=== PATIENT | female | born 1935 | race Caucasian/White ===

== ENCOUNTER 2016-04-24 18:06 | Emergency (ER) | payer MEDICARE ==
[~2016-04-24] VITALS: Ht 170.2 cm; Wt 79.8 kg
[~2016-04-24 18:06] MED LIST: ALPR.5 PO; ASPI1TAB91 PO; B-COINJ IM/IV; BACT800T5 PO; COLA100C3 PO; ESTR0.62 VAGINAL; IRBE300T13 PO; LEVO50TA4 PO; METO50TA PO; OMEP40CA2 PO; SIMV20TA PO; ZOFR4TAB3 SL
[2016-04-24 18:17] VITALS: BP 145/82; PULSE 63; RESP 16; TEMP 98.4; O2SAT 98
[2016-04-24 19:10] LABS: AUTOMATED NEUTROPHIL # 4.1 TH/MM3 (1.8-7.7); BASOPHIL % 0.6 % (0.0-2.0); EOSINOPHIL # 0.3 TH/MM3 (0-0.4); EOSINOPHIL % 4.9 % (0.0-4.0); HEMO FLAGS DIFF FINAL; LYMPH % 19.7 % (9.0-44.0); LYMPHOCYTE # 1.2 TH/MM3 (1.0-4.8); MEAN CELL VOLUME 85.4 FL (80.0-100.0); MEAN CORPUSCULAR HEMOGLOBIN 29.9 PG (27.0-34.0); MONO % 5.9 % (0.0-8.0); NEUT % 68.9 % (16.0-70.0); PLATELET COUNT 214 TH/MM3 (150-450); RED BLOOD COUNT 4.22 MIL/MM3 (4.00-5.30); RED CELL DISTRIBUTION WIDTH 13.3 % (11.6-17.2); WHITE BLOOD COUNT 5.9 TH/MM3 (4.0-11.0)
[2016-04-24 19:15] VITALS: BP 140/65; PULSE 74; RESP 16; O2SAT 100
[2016-04-24 19:16] LABS: CHLORIDE 99 MEQ/L (98-107); POTASSIUM 4.1 MEQ/L (3.5-5.1); SODIUM (NA) 134 MEQ/L (136-145)
[2016-04-24 19:20] LABS: ANION GAP 9 MEQ/L (5-15); BICARBONATE 26.4 MEQ/L (21.0-32.0); BLOOD UREA NITROGEN 18 MG/DL (7-18)
[2016-04-24 19:22] LABS: APTT (PATIENT) 24.6 SEC (24.3-30.1); INTERNATIONAL NORMALIZED RATIO 0.9 RATIO; PROTHROMBIN TIME - PATIENT 10.3 SEC (9.8-11.6)
[2016-04-24 19:23] LABS: ALT (GPT) 21 U/L (10-53); AST (GOT) 22 U/L (15-37); GLOMERULAR FILTRATION RATE 48 ML/MIN (>89)
[2016-04-24 19:25] LABS: TOTAL BILIRUBIN ADULT 0.3 MG/DL (0.2-1.0)
[2016-04-24 19:26] LABS: ALKALINE PHOSPHATASE 101 U/L (45-117)
--- NOTE | 2016-04-24 19:31 | PD ---
HPI Chief Complaint: Musculoskeletal Complaint Time Seen by Provider: 18:24 Travel History International Travel<30 days: No Contact w/Intl Traveler<30days: No Traveled to known affect area: No History of Present Illness HPI This is an 80-year-old female who presents to the emergency department with right lower extremity swelling that started 5 days ago, constant, moderate severity, increasing making it more painful to walk. She denies any associated shortness of breath or chest pain. She's not been any long trips recently. She 's been using compression stockings but that has not been helping. She says that back in February she had a cholecystectomy and had a CT of her lungs at that time which demonstrated some inflammation. Her primary care doctor recently called her following a CT that she had done at [facility] and told her she needed to go to a specialist but she has no idea what it's about. PFSH Past Medical History Hx Anticoagulant Therapy: Yes (asa 81mg) Anemia: Yes (TAKES B12 MONTHLY) Arthritis: Yes Asthma: Yes Anxiety: Yes Cancer: Yes (LEFT BREAST, UTERUS) Cardiovascular Problems: Yes (htn on med) High Cholesterol: Yes Chemotherapy: Yes (IN ) Diabetes: Yes (BORDERLINE, NO MEDS) Patient Takes Glucophage: No GERD: Yes Genitourinary: Yes ("BENIGN NODULE INSIDE THE BLADDER THAT BLEEDS SOMETIMES") Hiatal Hernia: Yes Hypertension: Yes Inguinal Hernia: Yes (RIGHT, REPAIRED) Pneumonia: Yes Thyroid Disease: Yes (HYPOTHYROIDISM) ?: Not Menopausal: Yes : 4 Para: 3 Miscarriage: 1 Ovarian Cysts: Yes Tubal Ligation: Yes Past Surgical History Abdominal Surgery: Yes (RIGHT INGUINAL) Eye Surgery: Yes (BILATERAL LENS IMPLANTS) Hysterectomy: Yes Mastectomy: Yes (LEFT BREAST: 1971) Oral Surgery: Yes ("NODULE REMOVED OFF THE SIDE OF MY TONGUE") Tonsillectomy: Yes Social History Alcohol Use: Yes ("WINE ON OCCASION") Tobacco Use: No (QUIT 1969) Substance Use: No Allergies-Medications (Allergen,Severity, Reaction): Coded Allergies: Actonel (Verified Allergy, Severe, Swelling, 04/24/16) Boniva (Verified Allergy, Severe, Swelling, 04/24/16) Penicillin (Verified Allergy, Severe, Swelling, 04/24/16) Levaquin (Verified Allergy, Unknown, 04/24/16) Reported Meds & Prescriptions Reported Meds & Active Scripts Active Reported Vitamin B-Complex 100 Inj (B-Complex Vitamins Inj) 1 Inj Inj 1 Injection IM/IV MONTHLY Aspirin Adult Low Strength (Aspirin) 81 Mg Tabdr 81 Mg PO DAILY Colace (Docusate Sodium) 100 Mg Cap 100 Mg PO HS Metoprolol Tartrate 50 Mg Tab 50 Mg PO BID Omeprazole 40 Mg Cap 40 Mg PO BID Premarin Vaginal (Estrogens, Conjugated Vaginal) 0.625 Mg/Gm Cream 1 Gm VAGINAL TWICE A WEEK PRN Simvastatin 20 Mg Tab 20 Mg PO DAILY Levothyroxine (Levothyroxine Sodium) 50 Mcg Tab 50 Mcg PO DAILY Xanax (Alprazolam) 0.5 Mg Tab 0.5 Mg PO DAILY PRN Irbesartan-Hydrochlorothiazide 300-12.5 Mg Tab 1 Tab PO DAILY Review of Systems Except as stated in HPI: all other systems reviewed are Neg Physical Exam Narrative GENERAL:Well appearing, no acute distress SKIN: Warm and dry. HEAD: Atraumatic. Normocephalic. EYES: Pupils equal and round. No injection or drainage. ENT: Moist mucous membranes NECK: Trachea midline. CARDIOVASCULAR: Regular rate and rhythm. No murmur appreciated. RESPIRATORY: Clear to auscultation. Breath sounds equal bilaterally. GASTROINTESTINAL: Abdomen soft, non-tender, nondistended. MUSCULOSKELETAL: No obvious deformities. 2+ pitting edema on the right lower extremity greater than the left. Positive Homans sign. NEUROLOGICAL: Awake and alert. No obvious cranial nerve deficits. Moving all extremities. PSYCHIATRIC: Appropriate mood and affect; insight and judgment normal. Data Data Last Documented VS Vital Signs Date Time Temp Pulse Resp B/P Pulse Ox O2 Delivery O2 Flow Rate FiO2 04/24/16 19:15 74 16 140/65 100 Room Air 04/24/16 18:17 98.4 Orders Complete Blood Count With Diff (04/24/16 18:32) Comprehensive Metabolic Panel (04/24/16 18:32) B-Type Natriuretic Peptide (04/24/16 18:32) ^ Insert Iv (04/24/16 18:32) Us Leg Venous Doppler (04/24/16 ) Prothrombin Time / Inr (Pt) (04/24/16 18:49) Act Partial Throm Time (Ptt) (04/24/16 18:49) Labs Laboratory Tests Test 04/24/16 18:40 White Blood Count 5.9 TH/MM3 Red Blood Count 4.22 MIL/MM3 Hemoglobin 12.6 GM/DL Hematocrit 36.0 % Mean Corpuscular Volume 85.4 FL Mean Corpuscular Hemoglobin 29.9 PG Mean Corpuscular Hemoglobin 35.0 % Concent Red Cell Distribution Width 13.3 % Platelet Count 214 TH/MM3 Mean Platelet Volume 8.4 FL Neutrophils (%) (Auto) 68.9 % Lymphocytes (%) (Auto) 19.7 % Monocytes (%) (Auto) 5.9 % Eosinophils (%) (Auto) 4.9 % Basophils (%) (Auto) 0.6 % Neutrophils # (Auto) 4.1 TH/MM3 Lymphocytes # (Auto) 1.2 TH/MM3 Monocytes # (Auto) 0.3 TH/MM3 Eosinophils # (Auto) 0.3 TH/MM3 Basophils # (Auto) 0.0 TH/MM3 CBC Comment DIFF FINAL Differential Comment Prothrombin Time 10.3 SEC Prothromb Time International 0.9 RATIO Ratio Activated Partial 24.6 SEC Thromboplast Time Sodium Level 134 MEQ/L Potassium Level 4.1 MEQ/L Chloride Level 99 MEQ/L Carbon Dioxide Level 26.4 MEQ/L Anion Gap 9 MEQ/L Blood Urea Nitrogen 18 MG/DL Creatinine 1.10 MG/DL Estimat Glomerular Filtration 48 ML/MIN Rate Random Glucose 117 MG/DL Calcium Level 9.1 MG/DL Total Bilirubin 0.3 MG/DL Aspartate Amino Transf 22 U/L (AST/SGOT) Alanine Aminotransferase 21 U/L (ALT/SGPT) Alkaline Phosphatase 101 U/L Total Protein 7.3 GM/DL Albumin 4.0 GM/DL [facility] Medical Decision Making Medical Screen Exam Complete: Yes Emergency Medical Condition: Yes Interpretation(s) Afebrile, no tachycardia, mild hypertension No leukocytosis Mild hyponatremia Differential Diagnosis DVT, Willoughby cyst, lymphedema Narrative Course This is an 80-year-old female who presents to the emergency department with right lower extremity swelling. The patient has no risk factors for PE except recently had a CT done at [facility] which demonstrated a persistent area of consolidation on CT scan concerning for infection versus malignancy. She is seeing a specialist regarding this. Ultrasound was obtained as well as labs. Dr. Ortiz will follow-up on results and disposition the patient accordingly. Ivana Erickson MD Apr 24, 2016 19:31
--- NOTE | 2016-04-24 20:50 | RADHPO ---
EXAM DATE/TIME: 04/25/2016 00:26 [facility] COMPARISON: No previous studies available for comparison. INDICATIONS : Right leg pain. MEDICAL HISTORY : Hypothyroidism. Hypercholesterolemia. Gastroesophageal reflux disease. Hypertension. Asthma. Pneum onia. Hiatal hernia. Ovarian cysts. . Arthritis. Diabetes. Anxiety. Breast cancer. Uterine c ancer. Chemotherapy. Anticoagulant therapy, Aspirin. SURGICAL HISTORY : Hysterectomy. Mastectomy, left. Right inguinal hernia repair. Bilateral lens implants. Tongue nodul e removal. ENCOUNTER: Initial ACUITY: 1 day PAIN SCORE: 6/10 LOCATION: Right leg. TECHNIQUE: Venous ultrasound of the leg was performed from the inguinal ligament to the proximal calf. Real-elpidio e, color Doppler and spectral tracing, compression and augmentation techniques were used. FINDINGS: There is normal compressibility of the deep venous system from the inguinal region to the proximal ca lf. No echogenic clot is seen in the lumen of the common femoral, femoral, popliteal, and posterior tibial veins. There is a normal response of the venous system to proximal and distal augmentation an d respiration. CONCLUSION: No DVT. Kevin Pitts MD on April 24, 2016 at 20:48 Board Certified Radiologist. This report was verified electronically.
--- NOTE | 2016-04-24 20:57 | PD ---
Physical Exam Time Seen by Provider: 20:[address] Erickson left this patient with me to check the ultrasound/lab and make a disposition, likely discharge if ultrasound is negative for DVT. Data Data Last Documented VS Vital Signs Date Time Temp Pulse Resp B/P Pulse Ox O2 Delivery O2 Flow Rate FiO2 04/24/16 19:15 74 16 140/65 100 Room Air 04/24/16 18:17 98.4 Orders Complete Blood Count With Diff (04/24/16 18:32) Comprehensive Metabolic Panel (04/24/16 18:32) B-Type Natriuretic Peptide (04/24/16 18:32) ^ Insert Iv (04/24/16 18:32) Us Leg Venous Doppler (04/24/16 ) Prothrombin Time / Inr (Pt) (04/24/16 18:49) Act Partial Throm Time (Ptt) (04/24/16 18:49) Labs Laboratory Tests Test 04/24/16 18:40 White Blood Count 5.9 TH/MM3 Red Blood Count 4.22 MIL/MM3 Hemoglobin 12.6 GM/DL Hematocrit 36.0 % Mean Corpuscular Volume 85.4 FL Mean Corpuscular Hemoglobin 29.9 PG Mean Corpuscular Hemoglobin 35.0 % Concent Red Cell Distribution Width 13.3 % Platelet Count 214 TH/MM3 Mean Platelet Volume 8.4 FL Neutrophils (%) (Auto) 68.9 % Lymphocytes (%) (Auto) 19.7 % Monocytes (%) (Auto) 5.9 % Eosinophils (%) (Auto) 4.9 % Basophils (%) (Auto) 0.6 % Neutrophils # (Auto) 4.1 TH/MM3 Lymphocytes # (Auto) 1.2 TH/MM3 Monocytes # (Auto) 0.3 TH/MM3 Eosinophils # (Auto) 0.3 TH/MM3 Basophils # (Auto) 0.0 TH/MM3 CBC Comment DIFF FINAL Differential Comment Prothrombin Time 10.3 SEC Prothromb Time International 0.9 RATIO Ratio Activated Partial 24.6 SEC Thromboplast Time Sodium Level 134 MEQ/L Potassium Level 4.1 MEQ/L Chloride Level 99 MEQ/L Carbon Dioxide Level 26.4 MEQ/L Anion Gap 9 MEQ/L Blood Urea Nitrogen 18 MG/DL Creatinine 1.10 MG/DL Estimat Glomerular Filtration 48 ML/MIN Rate Random Glucose 117 MG/DL Calcium Level 9.1 MG/DL Total Bilirubin 0.3 MG/DL Aspartate Amino Transf 22 U/L (AST/SGOT) Alanine Aminotransferase 21 U/L (ALT/SGPT) Alkaline Phosphatase 101 U/L B-Type Natriuretic Peptide 126 PG/ML Total Protein 7.3 GM/DL Albumin 4.0 GM/DL [facility] Medical Record Reviewed: Yes Supervised Visit with CHANO: Yes Interpretation(s) The complete metabolic profile shows a GFR of 48, creatinine 1.1, sodium 134 but is otherwise normal. The CBC is normal. The coagulation profile is normal. The ultrasound shows no DVT. Differential Diagnosis Popliteal cyst, deep vein thrombosis, musculoskeletal pain, electrolyte disorder , anemia, renal insufficiency, coagulopathy Narrative Course The patient appears to have musculoskeletal pain. There is no evidence for DVT on the ultrasound. She does have some renal insufficiency and this was discussed with the patient. She needs to follow-up with her primary care physician. Diagnosis Primary Impression: Musculoskeletal pain of right lower extremity Additional Instruction: As we discussed, you can take [id number] Aleve as you have been doing, take 2 tablets twice daily. A heating pad may help, interpose a towel between your skin and the pad and turn the pad on its lowest setting. Follow-up as scheduled with her primary care physician. As we discussed, it may be necessary to repeat the ultrasound in 2 weeks if you have continued pain. Med/Other Pt SpecificInfo: No Change to Meds Disposition: 01 DISCHARGE HOME Condition: Stable Denzel Ortiz MD Apr 24, 2016 20:57
[2016-04-24 21:28] VITALS: BP 152/76
== END 2016-04-24 21:31 | disposition home or self-care (01) ==
LOC: PHED 18:06
DX: M79.604 Pain in right leg (principal); M19.90 Unspecified osteoarthritis, unspecified site; I12.9 Hypertensive chronic kidney disease with stage 1 through stage 4 chronic kidney disease, or unspecified chronic kidney disease; N18.9 Chronic kidney disease, unspecified; E03.9 Hypothyroidism, unspecified; E78.00 Pure hypercholesterolemia, unspecified; D64.9 Anemia, unspecified; J45.909 Unspecified asthma, uncomplicated; Z79.82 Long term (current) use of aspirin
CPT/HCPCS: 80053; 83880; 85025; 85610; 85730; 93971

== ENCOUNTER 2017-03-19 12:26 | Emergency (ER) | payer MEDICARE ==
[~2017-03-19] VITALS: Ht 167.6 cm; Wt 77.0 kg
[~2017-03-19 12:26] MED LIST changes: -ASPI1TAB91 PO; +ASPI81TA16 PO; -BACT800T5 PO; -ZOFR4TAB3 SL
[2017-03-19 12:36] VITALS: BP 171/77; PULSE 62; RESP 16; TEMP 97.2; O2SAT 98
--- NOTE | 2017-03-19 13:29 | PD ---
HPI Chief Complaint: Cold / Flu Symptoms Time Seen by Provider: 12:49 Travel History International Travel<30 days: No Contact w/Intl Traveler<30days: No Traveled to known affect area: No History of Present Illness HPI 81-year-old female patient presents emergency department for evaluation of cough , runny nose and nasal congestion 2 days. Symptoms are extremely mild. Patient denies any fevers. Patient denies any abdominal pain, nausea, vomiting , diarrhea. Patient denies any history of COPD, asthma or history of smoking. PFSH Past Medical History Hx Anticoagulant Therapy: Yes (asa 81mg) Anemia: Yes (TAKES B12 MONTHLY) Arthritis: Yes Asthma: Yes Anxiety: Yes Cancer: Yes (LEFT BREAST, UTERUS) Cardiovascular Problems: Yes (htn on med) High Cholesterol: Yes Chemotherapy: Yes ([place] ) Patient Takes Glucophage: No Diminished Hearing: No GERD: Yes Genitourinary: Yes ("BENIGN NODULE INSIDE THE BLADDER THAT BLEEDS SOMETIMES") Hiatal Hernia: Yes Hypertension: Yes Inguinal Hernia: Yes (RIGHT, REPAIRED) Pneumonia: Yes Thyroid Disease: Yes (HYPOTHYROIDISM) Tetanus Vaccination: < 5 Years Influenza Vaccination: Yes Menopausal: Yes : 4 Para: 3 Miscarriage: 1 Ovarian Cysts: Yes Tubal Ligation: Yes Past Surgical History Abdominal Surgery: Yes (RIGHT INGUINAL) Eye Surgery: Yes (BILATERAL LENS IMPLANTS) Hysterectomy: Yes Mastectomy: Yes (LEFT BREAST: 1971) Oral Surgery: Yes ("NODULE REMOVED OFF THE SIDE OF MY TONGUE") Tonsillectomy: Yes Social History Alcohol Use: Yes ("WINE ON OCCASION") Tobacco Use: No (QUIT 1969) Substance Use: No Allergies-Medications (Allergen,Severity, Reaction): Coded Allergies: ibandronate sodium (Unverified Allergy, Severe, Swelling, 03/19/17) penicillin G (Unverified Allergy, Severe, Swelling, 03/19/17) risedronate sodium (Unverified Allergy, Severe, Swelling, 03/19/17) levofloxacin (Unverified Allergy, Unknown, 03/19/17) Reported Meds & Prescriptions Reported Meds & Active Scripts Active Reported Aspirin Adult Low Strength (Aspirin) 81 Mg Tabdr 81 Mg PO DAILY Metoprolol Tartrate 50 Mg Tab 50 Mg PO BID Omeprazole 40 Mg Cap 40 Mg PO BID Premarin Vaginal (Estrogens, Conjugated Vaginal) 0.625 Mg/Gm Cream 1 Gm VAGINAL TWICE A WEEK PRN Simvastatin 20 Mg Tab 20 Mg PO DAILY Levothyroxine (Levothyroxine Sodium) 50 Mcg Tab 50 Mcg PO DAILY Xanax (Alprazolam) 0.5 Mg Tab 0.5 Mg PO DAILY PRN Irbesartan-Hydrochlorothiazide 300-12.5 Mg Tab 1 Tab PO DAILY Review of Systems Except as stated in HPI: all other systems reviewed are Neg Physical Exam Narrative GENERAL: Well-nourished, well-developed 81-year-old female patient in no acute distress. Nontoxic appearing. SKIN: Focused skin assessment warm/dry. HEAD: Normocephalic. Atraumatic EYES: No scleral icterus. No injection or drainage. THROAT: Mild pharyngeal injection, No exudates, or tonsillar hypertrophy. Airway is patent. ENT: Mucosa pink and moist. No erythema or exudates. No uvular edema. No uvular , palatal, or tonsillar deviation. Airway patent. Nasal turbinates appear mildly hypertrophic without nasal blood, purulent drainage or septal hematoma. NECK: Supple, trachea midline. No JVD or lymphadenopathy. CARDIOVASCULAR: Regular rate and rhythm without murmurs, gallops, or rubs. RESPIRATORY: Breath sounds equal bilaterally. Clear to auscultation. No accessory muscle use. GASTROINTESTINAL: Abdomen soft, non-tender, nondistended. MUSCULOSKELETAL: No cyanosis, or edema. BACK: Nontender without obvious deformity. No CVA tenderness. Data Data Last Documented VS Vital Signs Date Time Temp Pulse Resp B/P (MAP) Pulse Ox O2 Delivery O2 Flow Rate FiO2 03/19/17 12:54 20 03/19/17 12:36 97.2 62 171/77 (108) 98 Orders Orders Influenzae A/B Antigen (03/19/17 12:59) [facility] Medical Decision Making Medical Screen Exam Complete: Yes Emergency Medical Condition: Yes Differential Diagnosis Differential diagnoses include but not limited to influenza, URI, nasal congestion, pharyngitis, bronchitis Narrative Course Well-nourished well-developed 81-year-old female in no acute distress. Influenza negative. No coughing was noted during the entire duration of the emergency room stay. Patient is discharged home with instructions for supportive care for viral syndrome, to return to the emergency Department with any worsening condition but otherwise follow-up with primary care. Diagnosis Primary Impression: Viral syndrome Referrals: Primary Care Physician Patient Instructions: General Instructions, Viral Syndrome (ED) Additional Instructions: Please return to emergency department if your symptoms return or worsen. Follow up with your primary care provider. Supportive care, stay hydrated, get enough rest, diet as tolerated. May alternate ibuprofen and Tylenol as needed for pain or fevers. Disposition: 01 DISCHARGE HOME Condition: Stable Susi Gonzalez Mar 19, 2017 13:28
== END 2017-03-19 14:03 | disposition home or self-care (01) ==
LOC: PHEFT 12:26
DX: B34.9 Viral infection, unspecified (principal); R09.81 Nasal congestion; I10 Essential (primary) hypertension; E03.9 Hypothyroidism, unspecified; E78.00 Pure hypercholesterolemia, unspecified; F41.9 Anxiety disorder, unspecified; K21.9 Gastro-esophageal reflux disease without esophagitis; D64.9 Anemia, unspecified; Z79.82 Long term (current) use of aspirin; Z87.39 Personal history of other diseases of the musculoskeletal system and connective tissue; Z85.3 Personal history of malignant neoplasm of breast; Z85.42 Personal history of malignant neoplasm of other parts of uterus; Z87.448 Personal history of other diseases of urinary system; Z72.89 Other problems related to lifestyle
CPT/HCPCS: 87804; 99283

== ENCOUNTER 2017-03-21 22:49 | Inpatient (IN) | payer MEDICARE ==
[~2017-03-21] VITALS: Ht 167.6 cm; Wt 77.9 kg
[~2017-03-21 22:49] MED LIST changes: -B-COINJ IM/IV; -COLA100C3 PO
[2017-03-21 22:58] VITALS: BP 197/89; PULSE 58; RESP 20; TEMP 97.7; O2SAT 96
[2017-03-22] VITALS (8 sets, daily range): BP systolic 102–183; BP diastolic 64–88; PULSE 61–76; RESP 16–20; TEMP 97.2–99.9; O2SAT 91–96
[2017-03-22] MEDS ORDERED: CYAN1000P IM (00:20)
[2017-03-22] MEDS ORDERED: OSELTAMIVIR PHOSPHATE 75 MG CAP PO ONE (00:30)
--- NOTE | 2017-03-22 00:47 | RADRPT ---
EXAM DATE/TIME: 03/22/2017 00:28 [facility] COMPARISON: CHEST SINGLE AP, February 22, 2016, 23:54. INDICATIONS : Cough. MEDICAL HISTORY : Carcinoma, breast. Asthma. SURGICAL HISTORY : Mastectomy, left. ENCOUNTER: Initial ACUITY: 1 day PAIN SCORE: 0/10 LOCATION: Bilateral chest FINDINGS: The heart size is normal. The lungs are free of focal consolidation. There are suspected calcified gr anulomas in the right lung.. Clips are seen over the left chest. The bones are osteopenic. CONCLUSION: No acute disease. Kevin Pitts MD on March 22, 2017 at 0:44 Board Certified Radiologist. This report was verified electronically.
[2017-03-22 01:09] LABS: AUTOMATED NEUTROPHIL # 1.4 TH/MM3 (1.8-7.7); BASOPHIL % 0.7 % (0.0-2.0); EOSINOPHIL # 0.1 TH/MM3 (0-0.4); EOSINOPHIL % 3.2 % (0.0-4.0); HEMATOCRIT 37.5 % (35.0-46.0); HEMO FLAGS DIFF FINAL; LYMPH % 22.7 % (9.0-44.0); LYMPHOCYTE # 0.5 TH/MM3 (1.0-4.8); MEAN CELL VOLUME 86.2 FL (80.0-100.0); MEAN CORPUSCULAR HEMOGLOBIN 27.8 PG (27.0-34.0); MEAN CORPUSCULAR HGB CONC 32.3 % (32.0-36.0); MONO % 12.3 % (0.0-8.0); NEUT % 61.1 % (16.0-70.0); PLATELET COUNT 146 TH/MM3 (150-450); RED BLOOD COUNT 4.35 MIL/MM3 (4.00-5.30); RED CELL DISTRIBUTION WIDTH 13.5 % (11.6-17.2); WHITE BLOOD COUNT 2.3 TH/MM3 (4.0-11.0)
[2017-03-22 01:22] LABS: BLOOD, URINE TRACE (NEG); GLUCOSE,URINE NEG (NEG); KETONE, URINE 15 mg/dL (NEG); NITRITE,URINE NEG (NEG)
--- NOTE | 2017-03-22 01:38 | PD ---
HPI Chief Complaint: Cold / Flu Symptoms Time Seen by Provider: 00:15 Travel History International Travel<30 days: No Contact w/Intl Traveler<30days: No Traveled to known affect area: No History of Present Illness HPI patient is 81 years old and complains of vomiting and urinary incontinence. After urinating she reports some leakage upon standing. She has been taking Charley-Vest to help with nausea however reports it seems to make things worse. She vomited twice. There is no blood in the emesis. Overall her appetite has been decreased. She denies fever. She reports nasal congestion cough. Her was recently diagnosed fluids he was admitted. She is concerned about being at home alone sick. PFSH Past Medical History Hx Anticoagulant Therapy: Yes (asa 81mg) Anemia: Yes (TAKES B12 MONTHLY) Arthritis: Yes Asthma: Yes Anxiety: Yes Cancer: Yes (LEFT BREAST, UTERUS) Cardiovascular Problems: Yes (htn on med) High Cholesterol: Yes Chemotherapy: Yes (IN ) Diminished Hearing: No GERD: Yes Genitourinary: Yes ("BENIGN NODULE INSIDE THE BLADDER THAT BLEEDS SOMETIMES") Hiatal Hernia: Yes Hypertension: Yes Inguinal Hernia: Yes (RIGHT, REPAIRED) Respiratory: Yes Pneumonia: Yes Thyroid Disease: Yes (HYPOTHYROIDISM) Tetanus Vaccination: < 5 Years Influenza Vaccination: No Menopausal: Yes : 4 Para: 3 Miscarriage: 1 Ovarian Cysts: Yes Tubal Ligation: Yes Past Surgical History Abdominal Surgery: Yes (RIGHT INGUINAL) Eye Surgery: Yes (BILATERAL LENS IMPLANTS) Hysterectomy: Yes Mastectomy: Yes (LEFT BREAST: 1971) Oral Surgery: Yes ("NODULE REMOVED OFF THE SIDE OF MY TONGUE") Tonsillectomy: Yes Social History Alcohol Use: Yes ("WINE ON OCCASION") Tobacco Use: No (QUIT 1969) Substance Use: No Allergies-Medications (Allergen,Severity, Reaction): Coded Allergies: ibandronate sodium (Unverified Allergy, Severe, Swelling, 03/22/17) penicillin G (Unverified Allergy, Severe, Swelling, 03/22/17) risedronate sodium (Unverified Allergy, Severe, Swelling, 03/22/17) levofloxacin (Unverified Allergy, Unknown, 03/22/17) Reported Meds & Prescriptions Reported Meds & Active Scripts Active Reported Cyanocobalamin Inj (Cyanocobalamin) 1,000 Mcg/Ml Inj 1,000 Mcg IM Q30D Aspirin Adult Low Strength (Aspirin) 81 Mg Tabdr 81 Mg PO DAILY Metoprolol Tartrate 50 Mg Tab 50 Mg PO BID Omeprazole 40 Mg Cap 40 Mg PO BID Premarin Vaginal (Estrogens, Conjugated Vaginal) 0.625 Mg/Gm Cream 1 Gm VAGINAL TWICE A WEEK PRN Simvastatin 20 Mg Tab 20 Mg PO DAILY Levothyroxine (Levothyroxine Sodium) 50 Mcg Tab 50 Mcg PO DAILY Xanax (Alprazolam) 0.5 Mg Tab 0.5 Mg PO DAILY PRN Irbesartan-Hydrochlorothiazide 300-12.5 Mg Tab 1 Tab PO DAILY Review of Systems Except as stated in HPI: all other systems reviewed are Neg General / Constitutional: No: Fever Physical Exam Narrative GENERAL: 81-year-old female pleasant well-nourished well-developed occasional cough SKIN: Focused skin assessment warm/dry. HEAD: Atraumatic. Normocephalic. EYES: Pupils equal and round. No scleral icterus. No injection or drainage. ENT: No nasal bleeding or discharge. Mucous membranes pink and moist. NECK: Trachea midline. No JVD. CARDIOVASCULAR: Regular rate and rhythm. No murmur appreciated. RESPIRATORY: No accessory muscle use. Clear to auscultation. Breath sounds equal bilaterally. GASTROINTESTINAL: Abdomen is not tender. It is soft. MUSCULOSKELETAL: No obvious deformities. No clubbing. No cyanosis. No edema. NEUROLOGICAL: Awake and alert. No obvious cranial nerve deficits. Motor grossly within normal limits. Normal speech. PSYCHIATRIC: Appropriate mood and affect; insight and judgment normal. Data Data Last Documented VS Vital Signs Date Time Temp Pulse Resp B/P (MAP) Pulse Ox O2 Delivery O2 Flow Rate FiO2 03/22/17 02:48 16 94 Room Air 03/22/17 02:47 61 03/21/17 22:58 97.7 Vital signs reviewed Orders Orders Sepsis Workup Initiated (03/22/17 ) Electrocardiogram (03/22/17 00:22) Complete Blood Count With Diff (03/22/17 00:22) Comprehensive Metabolic Panel (03/22/17 00:22) Lactic Acid Sepsis Protocol (03/22/17 00:22) Magnesium (Mg) (03/22/17 00:22) Lipase (03/22/17 00:22) Ckmb (Isoenzyme) Profile (03/22/17 00:22) Troponin I (03/22/17 00:22) Urinalysis - C+S If Indicated (03/22/17 00:22) Blood Culture (03/22/17 00:22) Chest, Single Ap (03/22/17 00:22) Ecg Monitoring (03/22/17 00:22) Iv Access Insert/Monitor (03/22/17 00:22) Oximetry (03/22/17 00:22) Oxygen Administration (03/22/17 00:22) Oseltamivir (Tamiflu) (03/22/17 00:30) Complete Blood Count With Diff (03/22/17 02:22) CKMB (03/22/17 02:30) CKMB% (03/22/17 02:30) Sodium Chlor 0.9% 1000 Ml Inj (Ns 1000 M (03/22/17 03:45) Admit To Inpatient (03/22/17 ) Vital Signs (Adult) Q4H (03/22/17 03:43) Neuro Checks Q4H (03/22/17 03:43) Activity Oob With Assistance (03/22/17 03:43) Day Care Assistant / Telemetry .CONTINUOUS (03/22/17 03:43) Intake + Output ARACELI.QSHIFT (03/22/17 03:43) Sodium Chloride 0.9% Flush (Ns Flush) (03/22/17 03:45) Sodium Chloride 0.9% Flush (Ns Flush) (03/22/17 09:00) Acetaminophen (Tylenol) (03/22/17 03:45) Ondansetron Inj (Zofran Inj) (03/22/17 03:45) Comprehensive Metabolic Panel (03/23/17 06:00) Complete Blood Count With Diff (03/23/17 06:00) Heparin Inj (Heparin Inj) (03/22/17 06:00) Naloxone Inj (Narcan Inj) (03/22/17 03:45) Inpatient Certification (03/22/17 ) Albuterol-Ipratropium Neb (Duoneb Neb) (03/22/17 03:45) Admit Order (Ed Use Only) (03/22/17 ) Day Care Assistant / Telemetry ARACELI.Q8H (03/22/17 03:43) Vital Signs (Adult) Q4H (03/22/17 03:43) Activity Bed Rest (03/22/17 03:43) Labs Laboratory Tests Test 03/22/17 00:55 03/22/17 01:17 03/22/17 02:30 White Blood Count 2.3 TH/MM3 2.6 TH/MM3 Red Blood Count 4.35 MIL/MM3 4.72 MIL/MM3 Hemoglobin 12.1 GM/DL 13.3 GM/DL Hematocrit 37.5 % 41.0 % Mean Corpuscular Volume 86.2 FL 86.9 FL Mean Corpuscular Hemoglobin 27.8 PG 28.1 PG Mean Corpuscular Hemoglobin Concent 32.3 % 32.4 % Red Cell Distribution Width 13.5 % 13.1 % Platelet Count 146 TH/MM3 161 TH/MM3 Mean Platelet Volume 8.0 FL 8.2 FL Neutrophils (%) (Auto) 61.1 % 58.7 % Lymphocytes (%) (Auto) 22.7 % 25.5 % Monocytes (%) (Auto) 12.3 % 12.7 % Eosinophils (%) (Auto) 3.2 % 2.2 % Basophils (%) (Auto) 0.7 % 0.9 % Neutrophils # (Auto) 1.4 TH/MM3 1.5 TH/MM3 Lymphocytes # (Auto) 0.5 TH/MM3 0.7 TH/MM3 Monocytes # (Auto) 0.3 TH/MM3 0.3 TH/MM3 Eosinophils # (Auto) 0.1 TH/MM3 0.1 TH/MM3 Basophils # (Auto) 0.0 TH/MM3 0.0 TH/MM3 CBC Comment DIFF FINAL DIFF FINAL Differential Comment Lactic Acid Level 0.8 mmol/L Urine Color YELLOW Urine Turbidity CLEAR Urine pH 6.0 Urine Specific [place] 1.006 Urine Protein NEG mg/dL Urine Glucose (UA) NEG mg/dL Urine Ketones 15 mg/dL Urine Occult Blood TRACE Urine Nitrite NEG Urine Bilirubin NEG Urine Leukocyte Esterase NEG Urine RBC 4-9 /hpf Urine WBC 0-2 /hpf Urine Squamous Epithelial Cells 0-5 /hpf Urine Transitional Epithelial Cells 0-5 /hpf Microscopic Urinalysis Comment CULT NOT INDICATED Blood Urea Nitrogen 8 MG/DL Creatinine 0.61 MG/DL Random Glucose 100 MG/DL Total Protein 7.0 GM/DL Albumin 3.7 GM/DL Calcium Level 8.1 MG/DL Magnesium Level 1.6 MG/DL Alkaline Phosphatase 98 U/L Aspartate Amino Transf (AST/SGOT) 40 U/L Alanine Aminotransferase (ALT/SGPT) 33 U/L Total Bilirubin 0.4 MG/DL Sodium Level 115 MEQ/L Potassium Level 3.1 MEQ/L Chloride Level 78 MEQ/L Carbon Dioxide Level 27.5 MEQ/L Anion Gap 10 MEQ/L Estimat Glomerular Filtration Rate 94 ML/MIN Total Creatine Kinase 175 U/L Creatine Kinase MB 2.9 NG/ML Troponin I LESS THAN 0.02 NG/ML Lipase 229 U/L MDM Medical Decision Making Medical Screen Exam Complete: Yes Emergency Medical Condition: Yes Medical Record Reviewed: Yes Differential Diagnosis Influenza, pneumonia, UTI, bronchitis, metabolic disarray Narrative Course CBC & BMP Diagram 03/22/17 00:55 03/22/17 02:30 Total Protein 7.0, Albumin 3.7, Calcium Level 8.1 L, Magnesium Level 1.6, Alkaline Phosphatase 98, Aspartate Amino Transf (AST/SGOT) 40 H, Alanine Aminotransferase (ALT/SGPT) 33, Total Bilirubin 0.4 Tn < 0.02 LA 0.8 Last Impressions Chest X-Ray 03/22/17 0022 Signed Impressions: Service Date/Time: Wednesday, March 22, 2017 00:28 - CONCLUSION: No acute disease. Kevin Pitts MD Patient has hyponatremia. Etiology unclear. The patient to be admitted for electrolyte correction. Discussed with Dr Harris for [facility]. Diagnosis Primary Impression: Hyponatremia Admitting Information Admitting Physician Requests: Admit Jameson Clay MD Mar 22, 2017 01:38
[2017-03-22 01:39] LABS: URINE COLOR YELLOW (YELLW/STRAW)
[2017-03-22 01:40] LABS: SQUAMOUS EPITHELIAL CELL URINE 0-5 /hpf (0-5); TRANSITIONAL EPI CELLS, URINE 0-5 /hpf; WBC, URINE 0-2 /hpf (0-5)
[2017-03-22 01:41] LABS: COMMENT (UR) CULT NOT INDICATED; CULTURE IF INDICATED CULT NOT INDICATED
[2017-03-22 02:16] LABS: ALKALINE PHOSPHATASE 98 U/L (45-117); ALT (GPT) 33 U/L (10-53); ANION GAP 10 MEQ/L (5-15); AST (GOT) 40 U/L (15-37); BICARBONATE 27.5 MEQ/L (21.0-32.0); BLOOD UREA NITROGEN 8 MG/DL (7-18); CHLORIDE 78 MEQ/L (98-107); CREATINE KINASE 175 U/L (26-192); GLOMERULAR FILTRATION RATE 94 ML/MIN (>89); MAGNESIUM 1.6 MG/DL (1.5-2.5); POTASSIUM 3.1 MEQ/L (3.5-5.1); TOTAL BILIRUBIN ADULT 0.4 MG/DL (0.2-1.0)
[2017-03-22 02:53] LABS: AUTOMATED NEUTROPHIL # 1.5 TH/MM3 (1.8-7.7); BASOPHIL % 0.9 % (0.0-2.0); EOSINOPHIL # 0.1 TH/MM3 (0-0.4); EOSINOPHIL % 2.2 % (0.0-4.0); HEMO FLAGS DIFF FINAL; LYMPH % 25.5 % (9.0-44.0); LYMPHOCYTE # 0.7 TH/MM3 (1.0-4.8); MEAN CELL VOLUME 86.9 FL (80.0-100.0); MEAN CORPUSCULAR HEMOGLOBIN 28.1 PG (27.0-34.0); MEAN CORPUSCULAR HGB CONC 32.4 % (32.0-36.0); MONO % 12.7 % (0.0-8.0); NEUT % 58.7 % (16.0-70.0); PLATELET COUNT 161 TH/MM3 (150-450); RED BLOOD COUNT 4.72 MIL/MM3 (4.00-5.30); RED CELL DISTRIBUTION WIDTH 13.1 % (11.6-17.2); WHITE BLOOD COUNT 2.6 TH/MM3 (4.0-11.0)
[2017-03-22 03:07] LABS: SODIUM (NA) 115 MEQ/L (136-145)
[2017-03-22 03:32] LABS: CKMB 2.9 NG/ML (0.5-3.6)
[2017-03-22] MEDS ORDERED: RESP: ALBUTEROL 2.5 MG/IPRATROPIUM 0.5 MG NEB (PRN) NEB (03:45)
[2017-03-22] MEDS ORDERED: SODIUM CHLOR 0.9% 1000 ML INJ 1,000 ML IV ONE (03:45)
[2017-03-22] MEDS ORDERED: SODIUM CHLORIDE 0.9% FLUSH 10 ML FLUSH IV FLUSH PRN (03:45)
[2017-03-22] MEDS ORDERED: ONDANSETRON HCL 4 MG/2 ML VIAL IVP PRN (03:45)
[2017-03-22] MEDS ORDERED: NALOXONE HCL 0.4 MG/ML AMP IV PUSH PRN (03:45)
[2017-03-22] MEDS ORDERED: ACETAMINOPHEN 325 MG TAB PO PRN (03:45)
[2017-03-22] MEDS ORDERED: ALPRAZolam 0.5 MG TAB PO PRN (04:00)
[2017-03-22] MEDS ORDERED: POTASSIUM CHLORIDE 25 MEQ EFFERVESCENT TAB PO ONE (04:00)
[2017-03-22] MEDS: HEPARIN SODIUM - SQ 10,000 UNITS/ML VIAL SQ SCH ×3 (06:10→21:41)
[2017-03-22] MEDS: LEVOTHYROXINE SODIUM 50 MCG TAB PO SCH (06:10)
[2017-03-22] MEDS: LOSARTAN 50 MG TAB PO SCH ×2 (09:00→11:05)
[2017-03-22] MEDS ORDERED: LOSARTAN 50 MG TAB PO SCH ×2 (09:00)
[2017-03-22] MEDS: ASPIRIN EC 81 MG TABEC PO SCH (09:00)
[2017-03-22 09:25] LABS: BICARBONATE 27.7 MEQ/L (21.0-32.0); POTASSIUM 3.1 MEQ/L (3.5-5.1)
--- NOTE | 2017-03-22 10:33 | HHI.HP ---
HPI Service [facility] Primary Care Physician Manjit Stephens M.D. Admission Diagnosis Hyponatremia Diagnoses: Chief Complaint: Vomiting, urinary incontinence. Travel History International Travel<30 Days: No Contact w/Intl Traveler <30 Da: No Traveled to Known Affected Are: No History of Present Illness Ms. Chanel is a pleasant 81-year-old female with a history of hypothyroidism, hypertension, hyperlipidemia who presented to the emergency department on 03/22/2017 due to vomiting and urinary incontinence. Her was recently diagnosed with flu and currently in the hospital. She has been taking Charley-Ayden which has made her nausea worse. She denies any blood in the vomitus. Additionally she also complains of cough for the last 2 weeks prior to admission. She also reports increased urinary frequency. ED work up indicated significant hyponatremia with sodium 115. At the time of this interview, patient does not have any further N/V. No fever, chills. Review of Systems Except as stated in HPI: all other systems reviewed are Neg Past Family Social History Past Medical History Hypertension, hyperlipidemia, hypothyroidism Past Surgical History Cholecystectomy, breast cancer related surgery Reported Medications Cyanocobalamin Inj (Cyanocobalamin) 1,000 Mcg/Ml Inj 1,000 Mcg IM Q30D Aspirin Adult Low Strength (Aspirin) 81 Mg Tabdr 81 Mg PO DAILY Metoprolol Tartrate 50 Mg Tab 50 Mg PO BID Omeprazole 40 Mg Cap 40 Mg PO BID Premarin Vaginal (Estrogens, Conjugated Vaginal) 0.625 Mg/Gm Cream 1 Gm VAGINAL TWICE A WEEK PRN Simvastatin 20 Mg Tab 20 Mg PO DAILY Levothyroxine (Levothyroxine Sodium) 50 Mcg Tab 50 Mcg PO DAILY Xanax (Alprazolam) 0.5 Mg Tab 0.5 Mg PO DAILY PRN Irbesartan-Hydrochlorothiazide 300-12.5 Mg Tab 1 Tab PO DAILY Allergies: Coded Allergies: ibandronate sodium (Unverified Allergy, Severe, Swelling, 03/22/17) penicillin G (Unverified Allergy, Severe, Swelling, 03/22/17) risedronate sodium (Unverified Allergy, Severe, Swelling, 03/22/17) levofloxacin (Unverified Allergy, Unknown, 03/22/17) Family History No family history of Alzheimer's, Parkinson's, cancer. Social History Patient denies tobacco use, she drinks wine on occasions. Physical Exam Vital Signs Vital Signs Date Time Temp Pulse Resp B/P (MAP) Pulse Ox O2 Delivery O2 Flow Rate FiO2 03/22/17 08:45 98.3 71 18 102/74 (83) 94 03/22/17 05:35 68 03/22/17 05:02 03/22/17 04:30 97.2 72 18 183/88 (119) 95 03/22/17 02:48 16 94 Room Air 03/22/17 02:47 61 16 175/85 (115) 96 Room Air 03/21/17 22:58 97.7 58 20 197/89 (125) 96 Physical Exam GENERAL: This is a well-nourished, well-developed patient, in no apparent distress. SKIN: No rashes, ecchymoses or lesions. Cool and dry. HEAD: Atraumatic. Normocephalic. No temporal or scalp tenderness. EYES: Pupils equal round and reactive. Extraocular motions intact. No scleral icterus. No injection or drainage. ENT: Nose without bleeding, purulent drainage or septal hematoma. Throat without erythema, tonsillar hypertrophy or exudate. Uvula midline. Airway patent. NECK: Trachea midline. No JVD or lymphadenopathy. Supple, nontender, no meningeal signs. CARDIOVASCULAR: Regular rate and rhythm without murmurs, gallops, or rubs. RESPIRATORY: Clear to auscultation. Breath sounds equal bilaterally. No wheezes , rales, or rhonchi. GASTROINTESTINAL: Abdomen soft, non-tender, nondistended. No hepato-splenomegaly , or palpable masses. No guarding. MUSCULOSKELETAL: Extremities without clubbing, cyanosis, or edema. No joint tenderness, effusion, or edema noted. No calf tenderness. Negative Homans sign bilaterally. NEUROLOGICAL: Awake and alert. Cranial nerves II through XII intact. Motor and sensory grossly within normal limits. Five out of 5 muscle strength in all muscle groups. Normal speech. Laboratory Laboratory Tests Test 03/22/17 00:55 03/22/17 01:17 03/22/17 02:30 03/22/17 08:30 White Blood Count 2.3 2.6 Red Blood Count 4.35 4.72 Hemoglobin 12.1 13.3 Hematocrit 37.5 41.0 Mean Corpuscular Volume 86.2 86.9 Mean Corpuscular Hemoglobin 27.8 28.1 Mean Corpuscular Hemoglobin Concent 32.3 32.4 Red Cell Distribution Width 13.5 13.1 Platelet Count 146 161 Mean Platelet Volume 8.0 8.2 Neutrophils (%) (Auto) 61.1 58.7 Lymphocytes (%) (Auto) 22.7 25.5 Monocytes (%) (Auto) 12.3 12.7 Eosinophils (%) (Auto) 3.2 2.2 Basophils (%) (Auto) 0.7 0.9 Neutrophils # (Auto) 1.4 1.5 Lymphocytes # (Auto) 0.5 0.7 Monocytes # (Auto) 0.3 0.3 Eosinophils # (Auto) 0.1 0.1 Basophils # (Auto) 0.0 0.0 CBC Comment DIFF FINAL DIFF FINAL Differential Comment Lactic Acid Level 0.8 Urine Color YELLOW Urine Turbidity CLEAR Urine pH 6.0 Urine Specific [place] 1.006 Urine Protein NEG Urine Glucose (UA) NEG Urine Ketones 15 Urine Occult Blood TRACE Urine Nitrite NEG Urine Bilirubin NEG Urine Leukocyte Esterase NEG Urine RBC 4-9 Urine WBC 0-2 Urine Squamous Epithelial Cells 0-5 Urine Transitional Epithelial Cells 0-5 Microscopic Urinalysis Comment CULT NOT INDICATED Blood Urea Nitrogen 8 5 Creatinine 0.61 0.51 Random Glucose 100 87 Total Protein 7.0 Albumin 3.7 Calcium Level 8.1 8.2 Magnesium Level 1.6 Alkaline Phosphatase 98 Aspartate Amino Transf (AST/SGOT) 40 Alanine Aminotransferase (ALT/SGPT) 33 Total Bilirubin 0.4 Sodium Level 115 126 Potassium Level 3.1 3.1 Chloride Level 78 89 Carbon Dioxide Level 27.5 27.7 Anion Gap 10 9 Estimat Glomerular Filtration Rate 94 115 Total Creatine Kinase 175 Creatine Kinase MB 2.9 Troponin I LESS THAN 0.02 Lipase 229 Date/Time Source Procedure Growth Status 03/22/17 01:00 Blood Peripheral Aerobic Blood Culture Pending Received 03/22/17 01:00 Blood Peripheral Anaerobic Blood Culture Pending Received Result Diagram: 03/22/17 0230 03/22/17 0830 Imaging Last Impressions Chest X-Ray 03/22/17 0022 Signed Impressions: Service Date/Time: Wednesday, March 22, 2017 00:28 - CONCLUSION: No acute disease. Kevin Pitts MD Caprini VTE Risk Assessment Caprini VTE Risk Assessment: Mod/High Risk (score >= 2) Caprini Risk Assessment Model Point Value = 1 Point Value = 2 Point Value = 3 Point Value = 5 Age 41-60 Minor surgery BMI > 25 kg/m2 Swollen legs Varicose veins or History of unexplained or recurrent spontaneous Oral contraceptives or hormone replacement Sepsis (< 1 month) Serious lung disease, including pneumonia (< 1 month) Abnormal pulmonary function Acute myocardial infarction Congestive heart failure (< 1 month) History of inflammatory bowel disease Medical patient at bed rest Age 61-74 Arthroscopic surgery Major open surgery (> 45 min) Laparoscopic surgery (> 45 min) Malignancy Confined to bed (> 72 hours) Immobilizing plaster cast Central venous access Age >= 75 History of VTE Family history of VTE Factor V Leiden Prothrombin [id number] Lupus anticoagulant Anticardiolipin antibodies Elevated serum homocysteine Heparin-induced thrombocytopenia Other congenital or acquired thrombophilia Stroke (< 1 month) Elective arthroplasty Hip, pelvis, or leg fracture Acute spinal cord injury (< 1 month) Prophylaxis Regimen Total Risk Factor Score Risk Level Prophylaxis Regimen 0-1 Low Early ambulation 2 Moderate Order ONE of the following: *Sequential Compression Device (SCD) *Heparin 5000 units SQ BID 3-4 Higher Order ONE of the following medications: *Heparin 5000 units SQ TID *Enoxaparin/Lovenox 40 mg SQ daily (WT < 150 kg, CrCl > 30 mL/min) *Enoxaparin/Lovenox 30 mg SQ daily (WT < 150 kg, CrCl > 10-29 mL/min) *Enoxaparin/Lovenox 30 mg SQ BID (WT < 150 kg, CrCl > 30 mL/min) AND/OR *Sequential Compression Device (SCD) 5 or more Highest Order ONE of the following medications: *Heparin 5000 units SQ TID (Preferred with Epidurals) *Enoxaparin/Lovenox 40 mg SQ daily (WT < 150 kg, CrCl > 30 mL/min) *Enoxaparin/Lovenox 30 mg SQ daily (WT < 150 kg, CrCl > 10-29 mL/min) *Enoxaparin/Lovenox 30 mg SQ BID (WT < 150 kg, CrCl > 30 mL/min) AND *Sequential Compression Device (SCD) Assessment and Plan Problem List: (1) Hyponatremia ICD Code: E87.1 - Hypo-osmolality and hyponatremia Status: Acute (2) UTI (urinary tract infection) ICD Code: N39.0 - Urinary tract infection, site not specified Status: Acute Assessment and Plan Ms. Chanel is a pleasant 81-year-old female with a history of hypothyroidism, hypertension, hyperlipidemia who presented to the emergency department on 03/22/2017 due to vomiting and urinary incontinence. She was found to have severe hyponatremia with sodium 115. - Gastritis - Nausea vomiting improved. Patient is tolerating diet well. - Continue Zofran for supportive care. - Hyponatremia - Hypokalemia - Sodium improved from 115 --> 126 --> 129. - Potassium improved from 3.1 --> 3.5. - Will repeat BMP in the AM. - Anxiety - Continue Xanax. - Hypothyroidism - continue levothyroxine 50 g every morning - Hypertension - continue metoprolol 50 mg twice a day, losartan 100 mg daily. - Hyperlipidemia - continue pravastatin 40 mg daily. Full code. Heparin subcutaneous. Physician Certification 2 Midnight Certification Type: Admission for Inpatient Services Order for Inpatient Services The services are ordered in accordance with Medicare regulations or non- Medicare payer requirements, as applicable. In the case of services not specified as inpatient-only, they are appropriately provided as inpatient services in accordance with the 2-midnight benchmark. Estimated LOS (days): 2 days is the estimated time the patient will need to remain in the hospital, assuming treatment plan goals are met and no additional complications. Post-Hospital Plan: Not yet determined Mirian Hooks DO Mar 22, 2017 10:33 am
[2017-03-22] MEDS: SODIUM CHLORIDE 0.9% FLUSH 10 ML FLUSH IV FLUSH SCH ×2 (11:04→21:40)
[2017-03-22] MEDS: PANTOPRAZOLE SOD 40 MG DELAYED RELEASE TAB PO SCH ×2 (11:05→17:49)
[2017-03-22] MEDS: PRAVASTATIN SOD 40 MG TAB PO SCH (11:05)
[2017-03-22] MEDS: METOPROLOL TARTRATE 50 MG TAB PO SCH ×2 (11:05→21:40)
[2017-03-22 11:38] LABS: CORTISOL 17.7 MCG/DL
--- NOTE | 2017-03-22 12:48 | EKG ---
Date Performed: 03/22/2017 Time Performed: 00:42:41 PTAGE: 81 years EKG: SINUS BRADYCARDIA WITH FIRST DEGREE AV BLOCK POSSIBLE RIGHT VENTRICULAR CONDUCTION DELAY RI OBABLE LATERAL MYOCARDIAL INFARCTION ABNORMAL ECG PREVIOUS TRACING : 02/22/2016 23.19 Since previous tracing, no significant change noted DOCTOR: Kalyan Cleveland Interpretating Date/Time 03/22/2017 12:47:28
[2017-03-22 13:25] LABS: POTASSIUM 3.5 MEQ/L (3.5-5.1)
[2017-03-22 13:28] LABS: BICARBONATE 29.5 MEQ/L (21.0-32.0)
[2017-03-23] VITALS: BP 165/72; PULSE 66; RESP 20; TEMP 98.7; O2SAT 91
[2017-03-23 04:00] VITALS: BP 165/77; PULSE 64; RESP 20; TEMP 97.9; O2SAT 94
[2017-03-23 05:57] LABS: AUTOMATED NEUTROPHIL # 1.1 TH/MM3 (1.8-7.7); BASOPHIL % 0.6 % (0.0-2.0); EOSINOPHIL # 0.1 TH/MM3 (0-0.4); EOSINOPHIL % 2.8 % (0.0-4.0); HEMATOCRIT 35.9 % (35.0-46.0); HEMO FLAGS DIFF FINAL; LYMPH % 35.5 % (9.0-44.0); LYMPHOCYTE # 0.8 TH/MM3 (1.0-4.8); MEAN CORPUSCULAR HEMOGLOBIN 28.1 PG (27.0-34.0); MEAN CORPUSCULAR HGB CONC 33.1 % (32.0-36.0); MONO % 15.3 % (0.0-8.0); NEUT % 45.8 % (16.0-70.0); PLATELET COUNT 154 TH/MM3 (150-450); RED BLOOD COUNT 4.23 MIL/MM3 (4.00-5.30); RED CELL DISTRIBUTION WIDTH 12.9 % (11.6-17.2); WHITE BLOOD COUNT 2.3 TH/MM3 (4.0-11.0)
[2017-03-23] MEDS: LEVOTHYROXINE SODIUM 50 MCG TAB PO SCH (06:02)
[2017-03-23] MEDS: HEPARIN SODIUM - SQ 10,000 UNITS/ML VIAL SQ SCH ×2 (06:02→15:26)
[2017-03-23 06:18] LABS: CHLORIDE 93 MEQ/L (98-107); POTASSIUM 3.3 MEQ/L (3.5-5.1); SODIUM (NA) 129 MEQ/L (136-145)
[2017-03-23] MEDS ORDERED: POTASSIUM CHLORIDE 20 MEQ CONTROLLED RELEASE TAB PO ONE (06:30)
[2017-03-23 06:31] LABS: ALKALINE PHOSPHATASE 80 U/L (45-117); ALT (GPT) 30 U/L (10-53); ANION GAP 9 MEQ/L (5-15); AST (GOT) 41 U/L (15-37); BICARBONATE 26.8 MEQ/L (21.0-32.0); BLOOD UREA NITROGEN 6 MG/DL (7-18); GLOMERULAR FILTRATION RATE 118 ML/MIN (>89); TOTAL BILIRUBIN ADULT 0.3 MG/DL (0.2-1.0)
[2017-03-23 08:00] VITALS: BP 142/63; PULSE 67; RESP 18; TEMP 97.8; O2SAT 97
[2017-03-23 08:01] VITALS: PULSE 63
[2017-03-23] MEDS ORDERED: amLODIPine BESYLATE 5 MG TAB PO SCH (09:00)
[2017-03-23] MEDS: PRAVASTATIN SOD 40 MG TAB PO SCH (10:02)
[2017-03-23] MEDS: ASPIRIN EC 81 MG TABEC PO SCH (10:02)
[2017-03-23] MEDS: SODIUM CHLORIDE 0.9% FLUSH 10 ML FLUSH IV FLUSH SCH (10:02)
[2017-03-23] MEDS: PANTOPRAZOLE SOD 40 MG DELAYED RELEASE TAB PO SCH (10:02)
[2017-03-23] MEDS: LOSARTAN 50 MG TAB PO SCH (10:02)
[2017-03-23] MEDS: METOPROLOL TARTRATE 50 MG TAB PO SCH (10:02)
--- NOTE | 2017-03-23 10:15 | HHI.PR ---
Subjective Remarks Follow-up for gastritis, hyponatremia, hypokalemia. Patient is currently doing well. No nausea vomiting. No fever or chills. Objective Vitals Vital Signs Date Time Temp Pulse Resp B/P (MAP) Pulse Ox O2 Delivery O2 Flow Rate FiO2 03/23/17 04:00 97.9 64 20 165/77 (106) 94 03/23/17 04:00 97.9 64 20 165/77 (106) 94 03/23/17 00:00 98.7 66 20 165/72 (103) 91 03/23/17 00:00 98.7 66 20 165/72 (103) 91 03/22/17 20:00 99.4 62 20 154/70 (98) 91 03/22/17 20:00 99.4 62 20 154/70 (98) 91 03/22/17 20:00 64 03/22/17 16:00 99.9 63 20 134/64 (87) 93 03/22/17 12:00 98.8 76 20 147/73 (97) 94 I/O 03/22/17 03/22/17 03/22/17 03/23/17 03/23/17 03/23/17 07:00 15:00 23:00 07:00 15:00 23:00 Intake Total 1000 ml 1340 ml 960 ml Output Total 800 ml 550 ml Balance 1000 ml 540 ml 410 ml Intake Oral 1340 ml 960 ml IV Total 1000 ml Output Urine Total 800 ml 550 ml # Voids 1 # Bowel Movements 0 Result Diagram: 03/23/17 0514 03/23/17 0514 Imaging Last Impressions Chest X-Ray 03/22/17 0022 Signed Impressions: Service Date/Time: Wednesday, March 22, 2017 00:28 - CONCLUSION: No acute disease. Kevin Pitts MD Objective Remarks GENERAL: Alert, Oriented x 3, NAD. SKIN: Warm and dry. HEAD: Normocephalic. EYES: No scleral icterus. No injection or drainage. NECK: Supple, trachea midline. No JVD or lymphadenopathy. CARDIOVASCULAR: Regular rate and rhythm without murmurs, gallops, or rubs. RESPIRATORY: Breath sounds equal bilaterally. No accessory muscle use. GASTROINTESTINAL: Abdomen soft, non-tender, nondistended. MUSCULOSKELETAL: No cyanosis, or edema. BACK: Nontender without obvious deformity. No CVA tenderness. Procedures None. A/P Problem List: (1) Hyponatremia ICD Code: E87.1 - Hypo-osmolality and hyponatremia Status: Acute (2) UTI (urinary tract infection) ICD Code: N39.0 - Urinary tract infection, site not specified Status: Acute Assessment and Plan Ms. Chanel is a pleasant 81-year-old female with a history of hypothyroidism, hypertension, hyperlipidemia who presented to the emergency department on 03/22/2017 due to vomiting and urinary incontinence. She was found to have severe hyponatremia with sodium 115. - Gastritis - Nausea vomiting improved. Patient is tolerating diet well. - Continue Zofran for supportive care. - Hyponatremia - Hypokalemia - Sodium improved from 115 --> 126 --> 129. - Potassium improved from 3.1 --> 3.5. - Will give patient one dose of 1g of NaCl. Advised patient not to take HCTZ. - Anxiety - Continue Xanax. - Hypothyroidism - continue levothyroxine 50 g every morning - Hypertension - continue metoprolol 50 mg twice a day, losartan 100 mg daily and Amlodipine 5mg Qday. - Hyperlipidemia - continue pravastatin 40 mg daily. Full code. Heparin subcutaneous. Discharge patient to home Condition on discharge: Improved Heart healthy Diet as tolerated Ad Priscilla activity Rx written: Amlodipine 5 mg daily Losartan 100 mg daily Follow-up with primary care physician within one week and BMP in 1 week. Mirian Hooks DO Mar 23, 2017 10:15 am
[2017-03-23 12:00] VITALS: BP 121/53; PULSE 65; RESP 16; TEMP 98.1; O2SAT 92
[2017-03-23 13:56] LABS: POTASSIUM 3.7 MEQ/L (3.5-5.1)
[2017-03-23 13:59] LABS: BICARBONATE 28.3 MEQ/L (21.0-32.0)
[2017-03-23] MEDS ORDERED: AMLO5 PO (14:35)
[2017-03-23] MEDS ORDERED: COZA50TA PO (14:35)
[2017-03-23] MEDS ORDERED: SODIUM CHLORIDE 1 GRAM TAB PO ONE (15:00)
== END 2017-03-23 17:00 | disposition home or self-care (01) | DRG 690 ==
LOC: PHED 22:49 → PHEDA 03-22 03:47 → PH3A 03-22 04:50
PROVIDERS: ADMIT Hospitalist; ATTEND Hospitalist
DX: N39.0 Urinary tract infection, site not specified (principal); E87.1 Hypo-osmolality and hyponatremia; D64.9 Anemia, unspecified; I10 Essential (primary) hypertension; M19.90 Unspecified osteoarthritis, unspecified site; K21.9 Gastro-esophageal reflux disease without esophagitis; K29.70 Gastritis, unspecified, without bleeding; E03.9 Hypothyroidism, unspecified; E78.5 Hyperlipidemia, unspecified; E87.6 Hypokalemia; R32 Unspecified urinary incontinence; F41.9 Anxiety disorder, unspecified; Z85.3 Personal history of malignant neoplasm of breast; Z85.42 Personal history of malignant neoplasm of other parts of uterus; Z87.891 Personal history of nicotine dependence; Z88.0 Allergy status to penicillin; Z88.1 Allergy status to other antibiotic agents; Z90.12 Acquired absence of left breast and nipple
CPT/HCPCS: 71010; 80048; 80053; 81001; 82533; 82550; 82552; 83605; 83690; 83735; 83930; 83935; 84300; 84443; 84484; 85025; 87040; 93005; 94664; J1644; J2405; J7030